=== PATIENT | male | born 1960 | race Caucasian/White ===

== ENCOUNTER 2017-05-12 13:02 | Emergency (ER) | payer BC ==
[~2017-05-12] VITALS: Ht 172.7 cm; Wt 83.9 kg
[2017-05-12] MEDS ORDERED: KEFLEX500 MG PO (13:35)
[2017-05-12 14:34] VITALS: BP 168/54
== END 2017-05-12 14:35 | disposition home or self-care (01) ==
LOC: ER 13:02
DX: S91.012A Laceration without foreign body, left ankle, initial encounter (principal); F10.99 Alcohol use, unspecified with unspecified alcohol-induced disorder; W29.3XXA Contact with powered garden and outdoor hand tools and machinery, initial encounter; Y93.89 Activity, other specified; Y92.89 Other specified places as the place of occurrence of the external cause; Y99.8 Other external cause status